=== PATIENT | female | born 1960 | race Caucasian/White ===

== ENCOUNTER 2024-06-19 16:39 | Inpatient (IN) | payer OTHER ==
[2024-06-19] MEDS ORDERED: ACETAMINOPHEN 500 MG TAB ONE (17:41)
[2024-06-19] MEDS ORDERED: NA CHLORIDE 0.9% 1,000 ML ONE (17:41)
[2024-06-19] MEDS ORDERED: FAMOTIDINE 20 MG/2 ML VIAL IV ONE (17:41)
[2024-06-19] MEDS ORDERED: NA CHLORIDE 0.9% 100 ML ONE (17:42)
[2024-06-19] MEDS ORDERED: PIPERACIL/TAZO 3.375 GM VIAL IV ONE (17:42)
[2024-06-19 18:17] LABS: Absolute Eosinophils 0.1 K/uL (0-0.5); Absolute Lymphocytes (CBC) 1.8 K/uL (0.7-4.9); Absolute Monocytes 1.1 K/uL (0.1-1.3); Absolute Neutrophil 11.2 K/uL (1.8-8.0); Basophils % 0.3 % (0-1.3); Eosinophils % 0.6 % (0-4.4); Hematocrit 37.6 % (36.0-45.0); Hemoglobin 12.1 g/dL (12.0-15.0); Lymphocytes % 12.5 % (15.3-44.8); MCH 30.1 pg (27.0-35.0); MCHC 32.2 g/dL (32.0-36.0); MCV 93.4 fL (80-100); MPV 8.9 fL (7.6-11.3); Monocytes % 7.7 % (3.3-12.3); Neutrophils % 78.9 % (41.7-73.7); Platelets 313 thou/uL (152-406); RBC Red Blood Cell Count 4.03 M/uL (3.86-4.86); Red Cell Distribution Width 12.9 % (12.1-15.2)
[2024-06-19 18:39] LABS: PT Prothrombin Time 13.2 SECONDS (9.4-12.5)
[2024-06-19 18:40] LABS: Protime INR 1.18
--- NOTE | 2024-06-19 18:41 | RAD REPORT ---
EXAM DESCRIPTION: RAD - Chest Single View - 06/19/2024 6:21 pm CLINICAL HISTORY: FEVER COMPARISON: CHEST PA AND LAT 2 VIEW dated 07/27/2011 FINDINGS: Lines: None. Lungs: No evidence of edema or pneumonia. Pleural: No significant pleural effusions or pneumothorax. Cardiac: The heart size is within normal limits. Mediastinum: Within normal limits. Bones: No acute fractures. Other: None IMPRESSION: No acute cardiopulmonary disease.
[2024-06-19 18:45] LABS: ALT/SGPT 31 U/L (13-56); AST/SGOT 24 U/L (15-37); Albumin 3.1 g/dL (3.4-5.0); Albumin/Globulin Ratio 0.7 (1.1-1.8); Alkaline Phosphatase 87 U/L (45-117); Anion Gap 10.6 mEq/L (5.0-15.0); BUN Blood Urea Nitrogen 13 mg/dL (7-18); Bicarbonate 26 mEq/L (21-32); Bilirubin Total 0.4 mg/dL (0.2-1.0); Globulin 4.2 g/dL (2.3-3.5); Glomerular Filtration Rate 79 ml/min (=/>90); Glucose Level 133 mg/dL (74-106); Lipase 32 U/L (13-75); Magnesium 2.3 mg/dL (1.6-2.4); NT PRO-BNP 70 pg/mL (<125); Potassium 3.6 mEq/L (3.5-5.1); Protein, Total 7.3 g/dL (6.4-8.2); Sodium Level 134 mEq/L (136-145)
[2024-06-19 18:46] LABS: Bilirubin Direct < 0.2 mg/dL (0-0.2); Bilirubin Indirect, Calculated 0.2 mg/dL (0.2-0.8); Troponin High Sensitivity < 3.0 pg/mL (<58.9)
--- NOTE | 2024-06-19 18:54 | RAD REPORT ---
EXAM DESCRIPTION: CTAbdomen Pelvis W Contrast - 06/19/2024 6:37 pm CLINICAL HISTORY: ABD PAIN COMPARISON: No comparisons TECHNIQUE: CT of the abdomen and pelvis was performed. All CT scans are performed using dose optimization technique as appropriate and may include automated exposure control or mA/KV adjustment according to patient size. FINDINGS: Lower chest: Mild circumferential thickened distal esophagus which likely reflects esophag itis. Liver: No acute abnormality or suspicious lesions. Biliary: No biliary ductal dilatation. Stomach: Surgical changes along the stomach. Duodenum: No significant focal abnormality. Pancreas: No significant abnormality. Spleen: No significant abnormality. Adrenal: No suspicious lesions. Kidney/ureter: No hydronephrosis. 3 mm stone in the right kidney. Retroperitoneum: No retroperitoneal adenopathy. Vascular: No aneurysm. Bowel: Normal appendix.. Peritoneum: Small volume of free air likely postsurgical. Bladder: Bladder gas present. Reproductive: Surgical changes from recent hysterectomy. There is some fluid in the region of the vag inal cuff but no well-defined abscess . Bones: No acute fracture. Moderate disc height loss at L5-S1. Other: Gas within the anterior abdominal wall is likely postoperative. IMPRESSION: Surgical changes from recent hysterectomy. Small volume of fluid in the region of the va ginal cuff is presumably postsurgical. No well-defined fluid collection to suggest abscess at this ti me. Small volume of free intraperitoneal air is also noted which may be postsurgical. With vaginal cu ff dehiscience, some of the air would be expected to be located closer to the operative bed, which is not seen. Bladder gas. Correlate with urinalysis to exclude cystitis.
[2024-06-19] MEDS ORDERED: Levofloxacin 750mg IV 750 MG/150 ML BAG IV ONE (19:50)
[2024-06-19] MEDS ORDERED: DERMABOND SKIN ADHESIVE TOP ONE (20:22)
[2024-06-19] MEDS ORDERED: TDAP (DIPHTH,PERTUSS(ACELL),TET VAC) 0.5 ML VIAL IMVAC ONE (20:22)
--- NOTE | 2024-06-19 21:08 | EDPHYS ---
Physician Documentation [facility] Name: Gail Mae Age: 63 yrs Sex: Female : 1960 Arrival Date: 06/19/2024 Time: 16:39 Bed 2 Private MD: ED Physician Tavon Coates HPI: 06/19 19:34 This 63 yrs old Female presents to ER via Ambulatory with complaints of Fever.deniz 19:34 The patient reports fever, that was measured at 100.3 degrees Fahrenheit. Onset: The deniz symptoms/episode began/occurred 3 day(s) ago. Modifying factors:. Modifying factors: there are no obvious modifying factors. Associated signs and symptoms: Pertinent positives: abdominal pain, DYSURIA. Severity of symptoms: At their worst the symptoms were moderate in the emergency department the symptoms are unchanged. The patient has not experienced similar symptoms in the past. Historical: - Allergies: 17:21 No Known Allergies; nj1 - PMHx: 17:21 None; nj1 - PSHx: 17:21 Bladder lift; Total hysterectomy; nj1 - Immunization history:: Client reports receiving the 2nd dose of the Covid vaccine. - Infectious Disease History:: Denies. - Social history:: Smoking status: Patient denies any tobacco usage or history of. ROS: 19:35 Eyes: Negative for injury, pain, redness, and discharge, ENT: Negative for injury, deniz pain, and discharge, Neck: Negative for injury, pain, and swelling, Respiratory: Negative for shortness of breath, cough, wheezing, and pleuritic chest pain, Back: Negative for injury and pain, MS/Extremity: Negative for injury and deformity, Skin: Negative for injury, rash, and discoloration, Neuro: Negative for headache, weakness, numbness, tingling, and seizure, Psych: Negative for depression, anxiety, suicide ideation, homicidal ideation, and hallucinations, Allergy/Immunology: Negative for hives, rash, and allergies, Endocrine: Negative for neck swelling, polydipsia, polyuria, polyphagia, and marked weight changes, Hematologic/Lymphatic: Negative for swollen nodes, abnormal bleeding, and unusual bruising, 19:35 Constitutional: Positive for body aches, chills, fatigue, fever, malaise, 19:35 Cardiovascular: Positive for palpitations, 19:35 Abdomen/GI: Positive for abdominal pain, abdominal cramps, abdominal distension, 19:35 : Positive for urinary symptoms, urinary frequency, burning with urination, difficulty urinating, Exam: 19:35 Head/Face: Normocephalic, atraumatic. Eyes: Pupils equal round and reactive to light, deniz extra-ocular motions intact. Lids and lashes normal. Conjunctiva and sclera are non-icteric and not injected. Cornea within normal limits. Periorbital areas with no swelling, redness, or edema. ENT: Nares patent. No nasal discharge, no septal abnormalities noted. Tympanic membranes are normal and external auditory canals are clear. Oropharynx with no redness, swelling, or masses, exudates, or evidence of obstruction, uvula midline. Mucous membranes moist. Neck: Trachea midline, no thyromegaly or masses palpated, and no cervical lymphadenopathy. Supple, full range of motion without nuchal rigidity, or vertebral point tenderness. No Meningismus. Chest/axilla: Normal chest wall appearance and motion. Nontender with no deformity. No lesions are appreciated. Cardiovascular: Regular rate and rhythm with a normal S1 and S2. No gallops, murmurs, or rubs. Normal PMI, no JVD. No pulse deficits. Respiratory: Lungs have equal breath sounds bilaterally, clear to auscultation and percussion. No rales, rhonchi or wheezes noted. No increased work of breathing, no retractions or nasal flaring. Back: No spinal tenderness. No costovertebral tenderness. Full range of motion. Skin: Warm, dry with normal turgor. Normal color with no rashes, no lesions, and no evidence of cellulitis. MS/ Extremity: Pulses equal, no cyanosis. Neurovascular intact. Full, normal range of motion. Neuro: Awake and alert, GCS 15, oriented to person, place, time, and situation. Cranial nerves II-XII grossly intact. Motor strength 5/5 in all extremities. Sensory grossly intact. Cerebellar exam normal. Normal gait. Psych: Awake, alert, with orientation to person, place and time. Behavior, mood, and affect are within normal limits. 19:35 Abdomen/GI: Inspection: distension, that is mild, Bowel sounds: active, all quadrants, Palpation: moderate abdominal tenderness, in the right lower quadrant and left lower quadrant, Liver: no appreciated palpable abnormalities, Hernia: not appreciated, 19:40 ECG was reviewed by the Attending Physician. [facility] Vital Signs: 17:17 BP 133 / 83; Pulse 125; Resp 18; Temp 100.3; Pulse Ox 96% on R/A; Weight 74.84 kg; nj1 Height 5 ft. 5 in. ; Pain 3/10; 20:08 BP 106 / 71; Pulse 86; Resp 16; Temp 98.4; Pulse Ox 100% ; Pain 2/10; jm12 21:47 BP 107 / 69; Pulse 85; Resp 16; Temp 98.2; Pulse Ox 100% ; 12 23:20 BP 110 / 58; Pulse 85; Resp 14; Pulse Ox 97% ; 12 17:17 Body Mass Index 27.46 (74.84 kg, 165.1 cm) nj1 17:17 Pain Scale: Adult [facility] 20:08 Pain Scale: Adult [facility] MDM: 17:10 Patient medically screened. [facility] 19:37 Differential diagnosis: bacterial infection, URI, UTI, gastroenteritis. Data reviewed: [facility] vital signs, nurses notes, lab test result(s), EKG, radiologic studies, CT scan, plain films. Consideration of Admission/Observation Patient was admitted/placed on observation. Escalation of care including admission/observation considered. I considered the following discharge prescriptions or medication management in the emergency department Medications were administered in the Emergency Department. See MAR. Independent interpretation of the following test(s) in the Emergency Department CT Scan: My interpretation is CT ABD PELVIS. Test considered but Not performed: Ultrasound NO ABD USG. Historians other than the Patient: Spouse/Significant Other: SPOUSE WELL INFORMED. Care significantly affected by the following chronic conditions: Obesity, SP LAP HYST , MESH. Counseling: I had a detailed discussion with the patient and/or guardian regarding the historical points, exam findings, and any diagnostic results supporting the discharge/admit diagnosis, lab results, radiology results, the need for further work-up and treatment in the hospital. 21:08 ED course: ANA HARRIS, ALL LABS AND FINDINGS, CYT WITH AIR IN BLADDER. [facility] 06/19 17:26 Order name: Basic Metabolic Panel; Complete Time: 18:49 [facility] 06/19 17:26 Order name: CBC with Diff; Complete Time: 18:49 [facility] 06/19 17:26 Order name: LFT's; Complete Time: 18:49 [facility] 06/19 17:26 Order name: Magnesium; Complete Time: 18:49 [facility] 06/19 17:26 Order name: NT PRO-BNP; Complete Time: 18:49 [facility] 06/19 17:26 Order name: PT-INR; Complete Time: 18:49 [facility] 06/19 17:26 Order name: Troponin HS; Complete Time: 18:49 [facility] 06/19 17:26 Order name: Lipase; Complete Time: 18:49 [facility] 06/19 17:26 Order name: Blood Culture Adult (2) [facility] 06/19 17:26 Order name: Lactate w/ 2H reflex if indic.; Complete Time: 18:49 [facility] 06/19 19:29 Order name: Urinalysis w/ reflexes; Complete Time: 21:12 [facility] 06/19 22:15 Order name: Urinalysis w/ reflexes [facility] 06/19 22:15 Order name: CBC with Automated Diff [facility] 06/19 22:15 Order name: CBC with Automated Diff EDMS 06/19 22:15 Order name: Comprehensive Metabolic Panel [facility] 06/19 22:16 Order name: Comprehensive Metabolic Panel [facility] 06/19 17:26 Order name: XRAY Chest (1 view); Complete Time: 18:49 [facility] 06/19 17:26 Order name: CT Abd/Pelvis - IV Contrast Only; Complete Time: 19:28 [facility] 06/19 17:26 Order name: EKG; Complete Time: 17:27 [facility] 06/19 22:15 Order name: CONS Physician Consult [facility]KS 06/19 17:26 Order name: Cardiac monitoring; Complete Time: 17:40 [facility] 06/19 17:26 Order name: EKG - Nurse/Tech; Complete Time: 18:29 [facility] 06/19 17:26 Order name: IV Saline Lock; Complete Time: 18:18 [facility] 06/19 17:26 Order name: Labs collected and sent; Complete Time: 18:18 [facility] 06/19 17:26 Order name: O2 Per Protocol; Complete Time: 17:40 [facility] 06/19 17:26 Order name: O2 Sat Monitoring; Complete Time: 17:40 [facility] 06/19 19:34 Order name: Morales; Complete Time: 21:23 [facility] EC:40 Rate is 113 beats/min. Rhythm is regular. QRS [place] is Normal. MA interval is normal. deniz QRS interval is normal. QT interval is normal. No Q waves. T waves are Normal. No ST changes noted. Clinical impression: Sinus tachycardia and No evidence of ischemia. Interpreted by me. Reviewed by me. Administered Medications: 17:52 Drug: Acetaminophen PO 1000 mg PO once Route: PO; ko1 18:29 Follow up: Response: No adverse reaction ko1 18:10 Drug: NS 0.9% IV 1000 ml IV at 1 bolus Per protocol; 1000 mL bolus Route: IV; Rate: 1 ko1 bolus; Site: left antecubital; 20:09 Follow up: IV Status: Completed infusion; IV Intake: 1000ml jm12 18:18 Drug: Famotidine IVP 20 mg IVP once; dilute with 10 mL 0.9% NaCl; give over 2 minutes ko1 Route: IVP; Site: left antecubital; 18:19 Drug: Piperacillin-Tazobactam IVPB 3.375 grams IVPB once over 60 mins; (mix in NS 100 ko1 mL) Route: IVPB; Infused Over: 60 mins; Site: left antecubital; 20:09 Drug: levofloxacin IVPB 750 mg 150 ml IVPB once over 90 mins Volume: 150 ml; Route: jm12 IVPB; Infused Over: 90 mins; Site: left antecubital; 21:48 Follow up: IV Status: Completed infusion 12 Disposition Summary: 06/19/24 21:08 Hospitalization Ordered Notes: Hospitalization Status: Inpatient Admission deniz Provider: Dav Brennan cha [facility] Condition: Fair deniz Problem: new deniz Symptoms: have improved deniz Bed/Room Type: Standard [facility] Room Assignment: 404(06/19/24 23:00) formerly [facility] Diagnosis - Abdominal tenderness - SP ROBOTIC ASSISTED HYST, BSO, MESH REPAIR deniz - Fever, unspecified deniz - Elevated white blood cell count deniz - Dysuria deniz - UTI/ Urinary tract infection, site not specified - PNEUMATURIA/EMPHYSEMATOUS deniz CYSTITIS - Sepsis, unspecified organism deniz Forms: - Medication Reconciliation Form deniz - SBAR form deniz - Leadership Thank You Letter deniz Signatures: Dispatcher [employer] Tavon Jarquin MD MD cha Oliver, Kathy RN RN ko1 Nahed Alexander RN RN nj1 Cherise Arambula formerly [facility] Fatimah Marshall RN RN jm12 Corrections: (The following items were deleted from the chart) 19:29 19:29 Urinalysis+U.LAB.BRZ ordered. EDMS EDMS 23:00 21:08 deniz harp
--- NOTE | 2024-06-19 21:08 | ER ---
Nurse's Notes [facility] Name: Gail Mae Age: 63 yrs Sex: Female : 1960 Arrival Date: 06/19/2024 Time: 16:39 Bed 2 Private MD: Diagnosis: Abdominal tenderness-SP ROBOTIC ASSISTED HYST, BSO, MESH REPAIR;Fever, unspecified;Elevated white blood cell count;Dysuria;UTI/ Urinary tract infection, site not specified-PNEUMATURIA/EMPHYSEMATOUS CYSTITIS;Sepsis, unspecified organism Presentation: 06/19 17:16 Chief complaint: Chief complaint: Patient states: Sent by OBGYN for further evaluation nj1 and treatment. Has been having fever since Tuesday, had total hysterectomy done June 11. Not feeling good. 17:17 Coronavirus screen: Vaccine status: Patient reports receiving the 2nd dose of the covid nj1 vaccine. Ebola Screen: Patient denies travel to an Ebola-affected area in the 21 days before illness onset. Initial Sepsis Screen: Does the patient meet any 2 criteria? HR > 90 bpm. No. Patient's initial sepsis screen is negative. Does the patient have a suspected source of infection? No. Patient's initial sepsis screen is negative. Risk Assessment: Do you want to hurt yourself or someone else? Patient reports no desire to harm self or others. Onset of symptoms was June 17, 2024. 17:17 Method Of Arrival: Ambulatory [facility] 17:17 Acuity: QASIM 3 [facility] Triage Assessment: 17:22 General: Appears in no apparent distress. comfortable, Behavior is calm, cooperative, nj1 appropriate for age. Pain: Complains of pain in pelvis Pain currently is 3 out of 10 on a pain scale. Neuro: Level of Consciousness is awake, alert, obeys commands, Oriented to person, place, time, situation. Cardiovascular: Patient's skin is warm and dry. Respiratory: Airway is patent Respiratory effort is even, unlabored. Historical: - Allergies: 17:21 No Known Allergies; nj1 - PMHx: 17:21 None; nj1 - PSHx: 17:21 Bladder lift; Total hysterectomy; nj1 - Immunization history:: Client reports receiving the 2nd dose of the Covid vaccine. - Infectious Disease History:: Denies. - Social history:: Smoking status: Patient denies any tobacco usage or history of. Assessment: 19:30 General: Appears in no apparent distress. jm12 19:30 Pain: Complains of pain in abdomen. Neuro: No deficits noted. Cardiovascular: No [facility] deficits noted. Respiratory: No deficits noted. GI: No deficits noted. No signs and/or symptoms were reported involving the gastrointestinal system. : Reports pt states vaginal discharge post op. Vital Signs: 17:17 BP 133 / 83; Pulse 125; Resp 18; Temp 100.3; Pulse Ox 96% on R/A; Weight 74.84 kg; nj1 Height 5 ft. 5 in. ; Pain 3/10; 20:08 BP 106 / 71; Pulse 86; Resp 16; Temp 98.4; Pulse Ox 100% ; Pain 2/10; jm12 21:47 BP 107 / 69; Pulse 85; Resp 16; Temp 98.2; Pulse Ox 100% ; jm12 23:20 BP 110 / 58; Pulse 85; Resp 14; Pulse Ox 97% ; 12 17:17 Body Mass Index 27.46 (74.84 kg, 165.1 cm) nj1 17:17 Pain Scale: Adult nj 20:08 Pain Scale: Adult [facility] ED Course: 17:09 Patient arrived in ED. im 17:10 Tavon Coates MD is Attending Physician. [facility] 17:21 Triage completed. nj1 17:22 Arm band placed on right wrist. nj1 17:25 Edwin Elise, RN is Primary Nurse. bp 18:18 Lactate w/ 2H reflex if indic. Sent. ko1 18:18 Blood Culture Adult (2) Sent. ko1 18:18 Lipase Sent. ko1 18:19 Basic Metabolic Panel Sent. ko1 18:19 Magnesium Sent. ko1 18:19 LFT's Sent. ko1 18:19 PT-INR Sent. ko1 18:19 NT PRO-BNP Sent. ko1 18:19 Troponin HS Sent. ko1 18:23 XRAY Chest (1 view) In Process Unspecified. EDMS 18:39 CT Abd/Pelvis - IV Contrast Only In Process Unspecified. EDMS 19:50 Morales cath inserted, using sterile technique, 16 Fr., by pr, balloon inflated, to jm12 gravity drainage. 21:05 Dav Brennan MD is Hospitalizing Provider. [facility] 06/20 00:46 Patient admitted, IV remains in place. [facility] Administered Medications: 06/19 17:52 Drug: Acetaminophen PO 1000 mg PO once Route: PO; ko1 18:29 Follow up: Response: No adverse reaction ko 18:10 Drug: NS 0.9% IV 1000 ml IV at 1 bolus Per protocol; 1000 mL bolus Route: IV; Rate: 1 ko1 bolus; Site: left antecubital; 20:09 Follow up: IV Status: Completed infusion; IV Intake: 1000ml [facility] 18:18 Drug: Famotidine IVP 20 mg IVP once; dilute with 10 mL 0.9% NaCl; give over 2 minutes ko1 Route: IVP; Site: left antecubital; 18:19 Drug: Piperacillin-Tazobactam IVPB 3.375 grams IVPB once over 60 mins; (mix in NS 100 ko1 mL) Route: IVPB; Infused Over: 60 mins; Site: left antecubital; 20:09 Drug: levofloxacin IVPB 750 mg 150 ml IVPB once over 90 mins Volume: 150 ml; Route: jm12 IVPB; Infused Over: 90 mins; Site: left antecubital; 21:48 Follow up: IV Status: Completed infusion [facility] Intake: 20:09 IV: 1000ml; Total: 1000ml. [facility] Output: 22:00 Urine: 500ml (Morales); Total: 500ml. [facility] Outcome: 21:08 Decision to Hospitalize by Provider. deniz 06/20 00:47 Patient left the ED. [facility] Signatures: Dispatcher [employer] Tavon Jarquin MD MD cha Peltier, Brian RN Shell Yeung RN RN ko1 Nahed Alexander RN RN nj1 Tania Moore Jessica RN RN [email or web address] Corrections: (The following items were deleted from the chart) 06/19 17:21 17:16 Chief complaint: nj1 nj1
[2024-06-19 21:09] LABS: Sqamous Epithelial None Seen /HPF (None Seen); Urine Bacteria None Seen /HPF (<20); Urine Bilirubin NEGATIVE (Negative); Urine Blood Negative (Negative); Urine Clarity Clear (Clear); Urine Color Colorless (Yellow); Urine Culture Reflex Order NOT NEEDED; Urine Glucose NEGATIVE (Negative); Urine Ketones NEGATIVE (Negative); Urine Microscopic Reflex YN ORDER UMIC; Urine Nitrite NEGATIVE (Negative); Urine Protein NEGATIVE (Negative); Urine RBC <5 /HPF (None Seen); Urine Urobilinogen Normal (Normal); Urine WBC <5 /HPF (<5)
--- NOTE | 2024-06-19 22:05 | P.HP ---
Certification for Inpatient Patient admitted to: Inpatient With expected LOS: >2 Midnights Practitioner: I am a practitioner with admitting privileges, knowledge of patient current condition, hospital course, and medical plan of care. Services: Services provided to patient in accordance with Admission requirements found in Title 42 Section 412.3 of the Code of Federal Regulations Patient History Date of Service: 06/20/24 Reason for admission: Abdominal pain History of Present Illness: 63 yrs old Female with past medical history of robotic assisted hysterectomy BS O, mesh repair recently was sent by MATHEMATICAL ENGINEERING TECHNICIAN for further evaluation as she was having fever since Tuesday. Patient also complains of dysuria. The patient reports fever, that was measured at 100.3 degrees Fahrenheit started 3 days ago and has been progressively getting worse associated with abdominal discomfort as well as dysuria. She was seen by MATHEMATICAL ENGINEERING TECHNICIAN and was sent to the ER for further management Patient denies any chest pain or shortness of breath. No nausea vomiting or diarrhea. Complains of dysuria. Patient was assessed in the ER and was found to have UTI and was admitted for further management . Allergies No Known Allergies Allergy (Unverified 06/20/24 01:17) - Past Medical/Surgical History Past Medical History: Reviewed- Non-Contributory Past Surgical History: Reviewed- Non-Contributory -: Robotic assisted hysterectomy - Family History Family History: Reviewed- Non-Contributory - Social History Smoking Status: Never smoker Review of Systems 10-point ROS is otherwise unremarkable Physical Examination - Vital Signs Temperature: 98.5 F Blood Pressure: 122/60 Pulse: 84 Respirations: 18 Pulse Ox (%): 94 - Physical Exam General: Alert, In no apparent distress, Oriented x3 HEENT: Atraumatic, Normocephalic Neck: Supple Respiratory: Clear to auscultation bilaterally, Normal air movement Cardiovascular: Regular rate/rhythm, Normal S1 S2 Capillary refill: <2 Seconds Gastrointestinal: Soft and benign, W/out hepatosplenomegaly Musculoskeletal: No clubbing, No swelling Integumentary: No rashes, No breakdown Neurological: Normal gait, Normal speech, Normal strength at 5/5 x4 extr Lymphatics: No axilla or inguinal lymphadenopathy - Studies Laboratory Data (last 24 hrs) 06/19/24 06/19/24 06/19/24 17:59 17:59 17:59 WBC 14.20 H Hgb 12.1 Hct 37.6 Plt Count 313 PT 13.2 H INR 1.18 Sodium 134 L Potassium 3.6 BUN 13 Creatinine 0.83 Glucose 133 H Magnesium 2.3 Total Bilirubin 0.4 AST 24 ALT 31 Alkaline Phosphatase 87 Lipase 32 Assessment and Plan - Plan Intractable abdominal pain Status post robotic assisted total hysterectomy, BSO Pain control Monitor closely Appreciate help from MATHEMATICAL ENGINEERING TECHNICIAN Cystitis Started on Zosyn UA noted CT findings noted as well GI/DVT prophylaxis Advanced directive full code Discharge Plan: Home Plan to discharge in: Greater than 2 days - Advance Directives Does patient have a Living Will: Yes Does patient have a Durable POA for Healthcare: Yes - Code Status/Comfort Care Code Status: Full Code Time Spent Managing Pts Care (In Minutes): 48
[2024-06-19] MEDS ORDERED: ONDANSETRON 4 MG/2 ML VIAL IV PRN (22:10)
[2024-06-19] MEDS: NA CHLORIDE 0.9% 1,000 ML IV SCH (23:00)
[2024-06-20 00:50] VITALS: BMI 28.3
[2024-06-20] MEDS: ACETAMINOPHEN 325 MG TABLET PO PRN (01:43)
[2024-06-20] MEDS ORDERED: MORPHINE 2 MG/ML SYR IV PRN (03:15)
[2024-06-20] MEDS ORDERED: HYDROCODONE/APAP 5/325 MG TAB PO PRN (03:15)
[2024-06-20 04:10] VITALS: O2SAT 99
[2024-06-20] MEDS: PIPER TAZO 3.375 GM in NA CHLORIDE 0.9% 100 ML IV SCH (04:38)
[2024-06-20 06:37] LABS: Absolute Basophils 0.1 K/uL (0-0.5); Absolute Eosinophils 0.2 K/uL (0-0.5); Absolute Lymphocytes (CBC) 1.7 K/uL (0.7-4.9); Absolute Neutrophil 5.5 K/uL (1.8-8.0); Basophils % 0.7 % (0-1.3); Eosinophils % 2.8 % (0-4.4); Hematocrit 33.2 % (36.0-45.0); Hemoglobin 10.9 g/dL (12.0-15.0); Lymphocytes % 19.8 % (15.3-44.8); MCH 30.6 pg (27.0-35.0); MCHC 32.9 g/dL (32.0-36.0); MCV 92.9 fL (80-100); MPV 8.6 fL (7.6-11.3); Neutrophils % 64.7 % (41.7-73.7); Platelets 265 thou/uL (152-406); RBC Red Blood Cell Count 3.58 M/uL (3.86-4.86); Red Cell Distribution Width 12.8 % (12.1-15.2)
[2024-06-20 06:55] LABS: Albumin 2.5 g/dL (3.4-5.0); Albumin/Globulin Ratio 0.7 (1.1-1.8); Anion Gap 7.8 mEq/L (5.0-15.0); Bilirubin Total 0.4 mg/dL (0.2-1.0); Globulin 3.6 g/dL (2.3-3.5); Potassium 3.8 mEq/L (3.5-5.1); Protein, Total 6.1 g/dL (6.4-8.2)
--- NOTE | 2024-06-20 06:58 | P.PN ---
Date of Service: 06/20/24 subjective abdominal pain controlled with prn analgesia Review of Systems 10-point ROS is otherwise unremarkable Physical Examination - Vital Signs reviewed - Physical Exam General: Alert, In no apparent distress, Oriented x3 HEENT: Atraumatic, Normocephalic Neck: Supple Respiratory: Clear to auscultation bilaterally, Normal air movement Cardiovascular: Regular rate/rhythm, Normal S1 S2 Capillary refill: <2 Seconds Gastrointestinal: Soft and benign, W/out hepatosplenomegaly Musculoskeletal: No clubbing, No swelling Integumentary: No rashes, No breakdown Neurological: Normal gait, Normal speech, Normal strength at 5/5 x4 extr Lymphatics: No axilla or inguinal lymphadenopathy Assessment and Plan - Plan Esophagitis Intractable abdominal pain Postoperative vaginal cuff dehiscence with possible abscess Status post robotic assisted total hysterectomy, BSO Pain control Monitor closely Appreciate help from CLASSIFICATIONS OFFICER CC/CM CT FINDINGS: Lower chest: Mild circumferential thickened distal esophagus which likely reflects IMPRESSION: Surgical changes from recent hysterectomy. Small volume of fluid in the region of the vaginal cuff is presumably postsurgical. No well-defined fluid collection to suggest abscess at this time. Small volume of free intraperitoneal air is also noted which may be postsurgical. With vaginal cuff dehiscience, some of the air would be expected to be located closer to the operative bed, which is not seen esophagitis. Started on Zosyn UA noted CT findings noted as well GI/DVT prophylaxis Advanced directive full code Discharge Plan: Home Plan to discharge in: Greater than 2 days - Advance Directives Does patient have a Living Will: Yes Does patient have a Durable POA for Healthcare: Yes - Code Status/Comfort Care Code Status: Full Code Time Spent Managing Pts Care (In Minutes): 35 <Nilsa Dillard - Last Filed: 06/22/24 13:42> . Chart has been reviewed. Events of the last 24 hours have been noted. Case discussed with ZENY. I performed a substantial part of the MDM during this patient's care today. I personally made or approved the documented management plan and acknowledge its risk of complications. I agree with the findings and documentation provided in the ZENY's notes <Radha Worrell - Last Filed: 07/25/24 01:19>
[2024-06-20] MEDS ORDERED: SODIUM CHLORIDE 0.9% 10ML INJ IV PRN (07:01)
[2024-06-20] MEDS: ENOXAPARIN 40 MG/0.4 ML SQ SCH (09:00)
[2024-06-20] MEDS ORDERED: BISACODYL E.C. 5 MG TAB PO PRN (09:10)
[2024-06-20] MEDS ORDERED: POLYETHYL GLY 3350 17 GM/DOSE PO PRN (09:10)
[2024-06-20] MEDS: PANTOPRAZOLE 40 MG INJ IVP SCH (09:19)
--- NOTE | 2024-06-21 06:27 | P.PN ---
Date of Service: 06/21/24 subjective abdominal pain controlled with prn analgesia Review of Systems 10-point ROS is otherwise unremarkable Physical Examination - Vital Signs reviewed - Physical Exam General: Alert, In no apparent distress, Oriented x3 HEENT: Atraumatic, Normocephalic Neck: Supple Respiratory: Clear to auscultation bilaterally, Normal air movement Cardiovascular: Regular rate/rhythm, Normal S1 S2 Capillary refill: <2 Seconds Gastrointestinal: Soft and benign, W/out hepatosplenomegaly Musculoskeletal: No clubbing, No swelling Integumentary: No rashes, No breakdown Neurological: Normal gait, Normal speech, Normal strength at 5/5 x4 extr Lymphatics: No axilla or inguinal lymphadenopathy Assessment and Plan - Plan Esophagitis Intractable abdominal pain Status post robotic assisted total hysterectomy, BSO Pain control Monitor closely Appreciate help from AUTOMATION ENGINEERING MANAGER CT FINDINGS: Lower chest: Mild circumferential thickened distal esophagus which likely reflects IMPRESSION: Surgical changes from recent hysterectomy. Small volume of fluid in the region of the vaginal cuff is presumably postsurgical. No well-defined fluid collection to suggest abscess at this time. Small volume of free intraperitoneal air is also noted which may be postsurgical. With vaginal cuff dehiscience, some of the air would be expected to be located closer to the operative bed, which is not seen esophagitis. PPI Cystitis Started on Zosyn UA noted CT findings noted as well GI/DVT prophylaxis Advanced directive full code Discharge Plan: Home Plan to discharge in: Greater than 2 days - Advance Directives Does patient have a Living Will: Yes Does patient have a Durable POA for Healthcare: Yes - Code Status/Comfort Care Code Status: Full Code Time Spent Managing Pts Care (In Minutes): 48
[2024-06-21 08:05] LABS: Absolute Basophils 0.1 K/uL (0-0.5); Absolute Eosinophils 0.3 K/uL (0-0.5); Absolute Lymphocytes (CBC) 2.3 K/uL (0.7-4.9); Absolute Monocytes 0.9 K/uL (0.1-1.3); Absolute Neutrophil 5.1 K/uL (1.8-8.0); Basophils % 0.9 % (0-1.3); Eosinophils % 2.9 % (0-4.4); Hematocrit 34.6 % (36.0-45.0); Hemoglobin 11.3 g/dL (12.0-15.0); Lymphocytes % 26.7 % (15.3-44.8); MCH 30.5 pg (27.0-35.0); MCHC 32.8 g/dL (32.0-36.0); MCV 93.2 fL (80-100); MPV 8.5 fL (7.6-11.3); Monocytes % 9.9 % (3.3-12.3); Neutrophils % 59.6 % (41.7-73.7); Platelets 317 thou/uL (152-406); RBC Red Blood Cell Count 3.72 M/uL (3.86-4.86); Red Cell Distribution Width 13.1 % (12.1-15.2)
[2024-06-21 08:19] LABS: Albumin 2.6 g/dL (3.4-5.0); Albumin/Globulin Ratio 0.7 (1.1-1.8); Anion Gap 7.9 mEq/L (5.0-15.0); Bilirubin Total 0.3 mg/dL (0.2-1.0); Globulin 3.8 g/dL (2.3-3.5); Potassium 3.9 mEq/L (3.5-5.1); Protein, Total 6.4 g/dL (6.4-8.2)
--- NOTE | 2024-06-21 12:49 | P.CNS ---
Date of Consult: 06/20/24 Chief Complaint: Abdominal pain History of Present Illness: Pt seen at clinic yesterday, Postop day #8 from robotic TLH BSO laparoscopic sacrocolpopexy sling and posterior repair. PT c/o feeling feverish, chills, foul discharge & headaches x 2 days. Last temp 97.5. Still spotting changing 2x daily. Started feeling slightly unwell in the last 2 days Emptying her bladder well mostly smaller volumes but without urgency or any pain Abdominal pain is very minimal No foul-smelling urine Bowel movements have been slightly firm and has strained but not been a severe problem pt directed to the ER admitted for IV abx today pt states she is feeling better, pain resolved still having the vaginal bleeding Allergies No Known Allergies Allergy (Unverified 06/20/24 01:17) Home Medications: Ibuprofen [Ibu] 600 mg PO BIDP PRN 06/20/24 Polyethylene Glycol 3350 [Miralax] 17 gm PO BID 06/20/24 Sennosides [Senokot] 2 tab PO BID 06/20/24 - Past Medical/Surgical History Diabetic: No -: Robotic assisted hysterectomy -: bladder lift - Family History Father Medical History: Heart disease Mother Medical History: Other (see notes) Notes: arthritis - Social History Alcohol use: Yes CD- Drugs: No Caffeine use: Yes Place of Residence: Home Physical Examination Temp Pulse Resp BP Pulse Ox 97.5 F 81 18 122/73 96 06/21/24 07:00 06/21/24 07:00 06/21/24 07:00 06/21/24 07:00 06/21/24 07:00 General: Alert, In no apparent distress, Oriented x3 HEENT: Atraumatic, Normocephalic, PERRLA Neck: Supple Musculoskeletal: No swelling Neurological: Normal speech - Problems (1) Pelvic pain Current Visit: Yes Status: Acute Plan: 9 days post op TLH-BSO LSCP On clinical exam vaginal cuff is nontender Suspected evolving cuff cellulitis or intrapelvic collection possibly an abscess CT scan reviewed continue IV abx and monitor WBC plan likely for discharge tomorrow with Augmentin 875 BID x 10d and flagyl 500mg BID x 7d follow up in office one week (2) Leukocytosis Current Visit: Yes Status: Acute Plan: WBC back to normal range today afebrile continue IV abx
--- NOTE | 2024-06-21 13:11 | EKG ---
Test Date: 2024-06-19 Test Time: 18:24:52 Commercial Attorney: BP MEASUREMENT RESULTS: Intervals: Rate: 113 CT: 156 QRSD: 74 QT: 310 QTc: 425 [place]: P: 45 CT: 156 QRS: 16 T: 8 INTERPRETIVE STATEMENTS: Sinus tachycardia Possible Inferior infarct, age undetermined Anterior infarct, age undetermined Abnormal ECG Compared to ECG 08/27/2022 16:07:20 Myocardial infarct finding now present Sinus rhythm no longer present Electronically Signed On 06-21-24 13:06:08 CDT by Facundo Bellamy
[2024-06-21 16:20] VITALS: BP 127/70; TEMP 96
--- NOTE | 2024-06-22 13:38 | P.DS ---
Admission Date: 06/19/24 Discharge Date: 06/21/24 Reason for Admission: Abdominal pain Brief History of Present Illness: 63 yrs old Female with past medical history of robotic assisted hysterectomy BSO, mesh repair recently was sent by FOAM CHARGER for further evaluation as she was having fever since Tuesday. Patient also complains of dysuria. The patient reports fever, that was measured at 100.3 degrees Fahrenheit started 3 days ago and has been progressively getting worse associated with abdominal discomfort as well as dysuria. She was seen by FOAM CHARGER and was sent to the ER for further management Patient denies any chest pain or shortness of breath. No nausea vomiting or diarrhea. Complains of dysuria. Patient was assessed in the ER and was found to have UTI and was admitted for further management . - Physical Exam General: Alert, In no apparent distress, Oriented x3 HEENT: Atraumatic, Normocephalic Neck: Supple Respiratory: Clear to auscultation bilaterally, Normal air movement Cardiovascular: Regular rate/rhythm, Normal S1 S2 Capillary refill: <2 Seconds Gastrointestinal: Soft and benign, W/out hepatosplenomegaly Musculoskeletal: No clubbing, No swelling Integumentary: No rashes, No breakdown Neurological: Normal gait, Normal speech, Normal strength at 5/5 x4 extr Lymphatics: No axilla or inguinal lymphadenopathy Hospital Course: 63 yrs old Female with past medical history of robotic assisted hysterectomy BSO, mesh repair recently was sent by FOAM CHARGER for further evaluation as she was having fever since Tuesday. Patient also complains of dysuria. The patient reports fever, that was measured at 100.3 degrees Fahrenheit started 3 days prior to admission and has been progressively getting worse associated with abdominal discomfort as well as dysuria. She was seen by FOAM CHARGER while inpatient. She was evaluated by FOAM CHARGER status post laparoscopic hysterectomy, bilateral oophorectomy, treated with IV antibiotics. Possible early abscess, status post 9 days TLHBSO, LSCP by LOCOMOTIVE OBSERVER. She was treated with IV antibiotics, will discharge home on p.o. antibiotics, Augmentin 875 twice daily for 10 days, Flagyl 500 twice daily for 7 days she needs to follow-up with FOAM CHARGER in 1 week. will discharge home on p.o. antibiotics, Augmentin 875 twice daily for 10 days, Flagyl 500 twice daily for 7 days she needs to follow-up with FOAM CHARGER in [address] FINDINGS: Lower chest: Mild circumferential thickened distal esophagus which likely reflects IMPRESSION: Surgical changes from recent hysterectomy. Small volume of fluid in the region of the vaginal cuff is presumably postsurgical. No well-defined fluid collection to suggest abscess at this time. Small volume of free intraperitoneal air is also noted which may be postsurgical. With vaginal cuff dehiscience, some of the air would be expected to be located closer to the operative bed, which is not seen esophagitis. UA was normal Continue home medicines as previously prescribed GOAL: Clear understanding of disease process INSTRUCTIONS: Physician Discharge Instructions: -Follow-up with FOAM CHARGER in 1 week -Follow-up with PCP in 1 to 2 weeks -Please call Dr. Worrell at [phone] if any questions regarding hospital stay -Please call nursing station at [phone] if any nursing or medication questions -Return to the emergency room if symptoms worsen Diet: ADA, low sodium Activity: Fall precautions <Nilsa Dillard - Last Filed: 06/22/24 13:31> Admission Date: 06/19/24 Discharge Date: 06/21/24 Hospital Course: Chart has been reviewed. Events of the last 24 hours have been noted. Case discussed with ZENY. I performed a substantial part of the MDM during this patient's care today. I personally made or approved the documented management plan and acknowledge its risk of complications. I agree with the findings and documentation provided in the ZENY's notes Patient will be discharged on antibiotic therapy with outpatient follow-up with gynecologic surgery. <Radha Worrell - Last Filed: 07/25/24 01:20> Disposition: ROUTINE DISCHARGE Discharge Condition: GOOD Vital Signs/Physical Exam: Temp Pulse Resp BP Pulse Ox 96.0 F L 90 18 127/70 99 06/21/24 16:00 06/21/24 16:00 06/21/24 16:00 06/21/24 16:00 06/21/24 16:00 Laboratory Data at Discharge: WBC 8.60 thou/uL (4.3-10.9) 06/21/24 07:40 Hgb 11.3 g/dL (12.0-15.0) L 06/21/24 07:40 Hct 34.6 % (36.0-45.0) L 06/21/24 07:40 Plt Count 317 thou/uL (152-406) 06/21/24 07:40 PT 13.2 SECONDS (9.4-12.5) H 06/19/24 17:59 INR 1.18 06/19/24 17:59 Sodium 141 mEq/L (136-145) 06/21/24 07:40 Potassium 3.9 mEq/L (3.5-5.1) 06/21/24 07:40 BUN 7 mg/dL (7-18) 06/21/24 07:40 Creatinine 0.78 mg/dL (0.55-1.02) 06/21/24 07:40 Glucose 99 mg/dL (74-106) 06/21/24 07:40 Magnesium 2.3 mg/dL (1.6-2.4) 06/19/24 17:59 Total Bilirubin 0.3 mg/dL (0.2-1.0) 06/21/24 07:40 AST 25 U/L (15-37) 06/21/24 07:40 ALT 34 U/L (13-56) 06/21/24 07:40 Alkaline Phosphatase 68 U/L (45-117) 06/21/24 07:40 Lipase 32 U/L (13-75) 06/19/24 17:59 <Nilsa Dillard - Last Filed: 06/22/24 13:31> Vital Signs/Physical Exam: Temp Pulse Resp BP Pulse Ox 96.0 F L 90 18 127/70 99 06/21/24 16:00 06/21/24 16:00 06/21/24 16:00 06/21/24 16:00 06/21/24 16:00 Laboratory Data at Discharge: WBC 8.60 thou/uL (4.3-10.9) 06/21/24 07:40 Hgb 11.3 g/dL (12.0-15.0) L 06/21/24 07:40 Hct 34.6 % (36.0-45.0) L 06/21/24 07:40 Plt Count 317 thou/uL (152-406) 06/21/24 07:40 PT 13.2 SECONDS (9.4-12.5) H 06/19/24 17:59 INR 1.18 06/19/24 17:59 Sodium 141 mEq/L (136-145) 06/21/24 07:40 Potassium 3.9 mEq/L (3.5-5.1) 06/21/24 07:40 BUN 7 mg/dL (7-18) 06/21/24 07:40 Creatinine 0.78 mg/dL (0.55-1.02) 06/21/24 07:40 Glucose 99 mg/dL (74-106) 06/21/24 07:40 Magnesium 2.3 mg/dL (1.6-2.4) 06/19/24 17:59 Total Bilirubin 0.3 mg/dL (0.2-1.0) 06/21/24 07:40 AST 25 U/L (15-37) 06/21/24 07:40 ALT 34 U/L (13-56) 06/21/24 07:40 Alkaline Phosphatase 68 U/L (45-117) 06/21/24 07:40 Lipase 32 U/L (13-75) 06/19/24 17:59 <Radha Worrell - Last Filed: 07/25/24 01:20> Diet: Regular Activity: Fall precautions Time spent managing pt's care (in minutes): 45 <Nilsa Dillard - Last Filed: 06/22/24 13:31> <Radha Worrell - Last Filed: 07/25/24 01:20> Home Medications: Polyethylene Glycol 3350 [Miralax] 17 gm PO BID 06/20/24 Sennosides [Senokot] 2 tab PO BID 06/20/24 Amox/Clavulanate [Augmentin 875-125 Tab] 875 mg PO BID #20 tab 06/21/24 metroNIDAZOLE [Flagyl] 500 mg PO Q8H #20 06/21/24 metroNIDAZOLE [Flagyl] 500 mg PO Q8H #20 tab 06/21/24 New Medications: Amox/Clavulanate [Augmentin 875-125 Tab] 875 mg PO BID #20 tab metroNIDAZOLE [Flagyl] 500 mg PO Q8H #20 metroNIDAZOLE [Flagyl] 500 mg PO Q8H #20 tab Physician Discharge Instructions: -DC IV and DC home -Follow-up with PCP in 1 to 2 weeks -Follow-up with Gynecology in 1 to 2 weeks -Please call Dr. Worrell at [phone] if any questions regarding hospital stay -Please call nursing station at [phone] if any nursing or medication que stions -Return to the emergency room if symptoms worsen Followup: Erin Bermudez MD [Primary Care Provider] -
== END 2024-06-21 16:45 | disposition home or self-care (01) | DRG 919 ==
LOC: ER 16:39 → ERHOLD 22:10 → 4TH 06-20 00:27
PROVIDERS: ADMIT Family Medicine; ATTEND Hospitalist
DX: T81.32XA Disruption of internal operation (surgical) wound, not elsewhere classified, initial encounter (principal); A41.9 Sepsis, unspecified organism; N39.0 Urinary tract infection, site not specified; K20.90 Esophagitis, unspecified without bleeding; E66.9 Obesity, unspecified; Z68.28 Body mass index [BMI] 28.0-28.9, adult; Z79.899 Other long term (current) drug therapy; Z90.710 Acquired absence of both cervix and uterus; Y83.8 Other surgical procedures as the cause of abnormal reaction of the patient, or of later complication, without mention of misadventure at the time of the procedure
CPT/HCPCS: 36415; 51702; 71045; 74177; 80048; 80053; 80076; 81001; 83605; 83690; 83735; 83880; 84484; 85025; 85610; 87040; 93005; 96361; 96365; 96366; 96375; 99284; J1650; J2470; J2543; J7030; Q9967